=== PATIENT | female | born 1935 | race Caucasian/White ===

== ENCOUNTER 2022-10-03 21:12 | Inpatient (IN) | payer OTHER, BC ==
[~2022-10-03] VITALS: Ht 154.9 cm; Wt 60.3 kg
[2022-10-03 21:15] VITALS: BP 151/100
--- NOTE | 2022-10-03 21:15 | NUR ---
PT NATALIE BLS. TAKEN TO BED 6
--- NOTE | 2022-10-03 21:27 | NUR ---
Dr. Smith examining patient.
[2022-10-03] MEDS ORDERED: NACL 0.9% 1,000 ML IV ONE (21:35)
[2022-10-03 21:54] LABS: BASOPHILS % (AUTO) 0.3 % (0.0-2.0); EOSINOPHILS % (AUTO) 0.1 % (0.0-4.0); HEMATOCRIT 38.9 % (36-48); HEMOGLOBIN 13.5 g/dL (12.0-16.0); LYMPHOCYTES # (AUTO) 0.7 K/uL (2.5-16.5); MEAN CORPUSCULAR HEMOGLOBIN 32 pg (27-31); MEAN CORPUSCULAR HGB CONC 35 g/dL (33-37); MEAN CORPUSCULAR VOLUME 93.4 fL (80-94); MONOCYTES # (AUTO) 0.8 K/uL (0.8-1.0); MONOCYTES % (AUTO) 9.3 % (1.7-9.3); NEUTROPHILS # (AUTO) 7.1 K/uL (1.8-7.7); NEUTROPHILS % (AUTO) 82.3 % (42.2-75.2); PLATELET COUNT (AUTO) 418 K/uL (140-450); RED BLOOD CELL COUNT(AUTO) 4.16 MIL/uL (4.20-5.40); RED CELL DISTRIBUTION WIDTH 14.5 % (11.6-13.7); WHITE BLOOD COUNT (AUTO) 8.6 K/uL (4.8-10.8)
--- NOTE | 2022-10-03 22:05 | NUR ---
PT TAKEN TO CT
[2022-10-03 22:23] LABS: ASPARTATE AMINOTRANSFERASE 97 U/L (15-37); CARBON DIOXIDE 23.7 mmol/L (21-32); CHLORIDE 101 mmol/L (98-107); CREATININE 1.6 mg/dL (0.6-1.3); GLUCOSE 98 mg/dL (74-106); POTASSIUM 3.7 mmol/L (3.5-5.1); SODIUM SERUM 138 mmol/L (136-145); TOTAL BILIRUBIN 0.8 mg/dL (0.0-1.0); UREA NITROGEN, BLOOD 35 mg/dL (7-18)
--- NOTE | 2022-10-03 22:42 | NUR ---
SPOKE TO THOMAS PT'S SON THAT IS LISTED EMERGENCY CONTACT STATES PT HAS HISTORY OF FALLS AND ABOUT 2 REPORTS TO APS ABOUT HER LIVING SITUATION AND FALLS. STATES WAS D/C FROM [facility] ABOUT 2 MONTHS AGO AND WAS HOSPITALIZED D/T FALL. STATES SHE DOES NOT WANT TO LIVE ANYONE AND REFUSES TO STAY IN A [facility]IP APPLYING MACHINE TENDER CARE FACILITY. PT'S DAUGHTER STATES SHE ALSO LIKES TO DRINK ALCOHOL WHICH PLACES A BIG FACTOR IN HER FALLING. RHONDA DOVER MADE AWARE.
--- NOTE | 2022-10-03 22:49 | NUR ---
SONY DAUGHTER'S NUMBER [id number]
--- NOTE | 2022-10-03 22:58 | NUR ---
PT RETURN FROM CT
[2022-10-03] MEDS ORDERED: ASPIRIN 81 MG TAB.CHEW PO ONE (23:30)
[2022-10-03 23:37] LABS: APPEARANCE,URINE CLOUDY (CLEAR); BILIRUBIN,URINE NEGATIVE (NEGATIVE); BLOOD, URINE 2+ (NEGATIVE); COLOR,URINE YELLOW (YELLOW); LEUKOCYTE ESTERASE ,URINE 1+ (NEGATIVE); NITRITE, URINE NEGATIVE (NEGATIVE); PH,URINE 5.5 (5.0-9.0); UGLUCOSE NEGATIVE (NEGATIVE)
--- NOTE | 2022-10-03 23:38 | NUR ---
UA collected and sent to lab
[2022-10-03 23:53] LABS: RBC,URINE 0-5 /HPF (0-5)
[2022-10-04] MEDS ORDERED: DEXT 5% / NACL 0.9% 1,000 ML IV ONE (00:30)
--- NOTE | 2022-10-04 00:58 | NUR ---
REPORT TO APS MADE, SPOKE TO GERMANE. GAVE INTAKE NUMBER [id number] FORM SUBMITED TO HOUSE SUPERVISIOR TO BE MAILED TO [facility] OFFICE.
--- NOTE | 2022-10-04 01:42 | NUR ---
Patient will be admitted to care of . Admited to TELE. Will go to room 106B. Belongings list completed. Report to HÉCTOR ALVAREZ.
--- NOTE | 2022-10-04 02:00 | NUR ---
NURSE NOTES VSS. AFEB. TELE WITH SR. NO C/O PAIN OR DISCOMFORT.
[2022-10-04] MEDS ORDERED: LOSA100T2 PO (02:02)
[2022-10-04] MEDS ORDERED: SYN.05 PO (02:02)
[2022-10-04 02:55] VITALS: BP 172/75
--- NOTE | 2022-10-04 06:00 | NUR ---
NURSE NOTES VSS. AFEB. NO C/O PAIN OR DISCOMFORT. TELE MONITOR WITH SR. CATY ZHANG RN
--- NOTE | 2022-10-04 07:25 | NUR ---
RECEIVED REPORT FROM FACILITY EXAMINER FOR CONTINUITY OF CARE. INITIAL ASSESSMENT DONE. ALERT AND ORIENTED. RESP. EVEN AND UNLABORED. IV SITE INTACT. NOT IN ANY DISTRESS NOTED. CALL LIGHT KEPT WITHIN REACH. WILL CONTINUE TO MONITOR.
--- NOTE | 2022-10-04 07:28 | NUR ---
NURSE REPORT REPORT GIVEN TO DAYSSCFT NURSE CICI TO ASSUME CARE OF PATIENT. ALL QUESTIONS ANSWERED. CATY ZHANG RN
[2022-10-04] MEDS ORDERED: guaiFENesin DM 200/20 MG-10 ML 10 ML UDC PO PRN (07:55)
[2022-10-04] MEDS ORDERED: POTASSIUM CHLORIDE 10 MEQ TABER PO PRN (07:55)
[2022-10-04] MEDS ORDERED: ACETAMINOPHEN 325 MG TAB PO PRN (07:55)
[2022-10-04] MEDS ORDERED: HYDROcodone/APAP 7.5/325 MG 1 TAB PO PRN (07:55)
[2022-10-04] MEDS ORDERED: ZOLPIDEM 5 MG TAB PO PRN (07:55)
[2022-10-04] MEDS ORDERED: DOCUSATE SODIUM 100 MG GELCAP PO PRN (07:55)
[2022-10-04] MEDS ORDERED: ONDANSETRON 4 MG/2 ML VIAL IM/IVP PRN (07:55)
[2022-10-04 08:00] VITALS: BP 137/77
[2022-10-04 08:46] LABS: PROTHROMBIN TIME 10.1 secs (10.8-13.4)
[2022-10-04] MEDS: NACL 0.9% 1,000 ML IV SCH (08:50)
[2022-10-04 08:54] LABS: CHOL/HDL RATIO 1.7 (1-4.5); FREE T4 (FREE THYROXINE) 1.26 ng/dL (0.76-1.46); MAGNESIUM 2.3 mg/dL (1.8-2.4); PHOSPHORUS 3.9 mg/dL (2.5-4.9)
[2022-10-04] MEDS ORDERED: LOSARTAN 50 MG TAB PO SCH (09:00)
--- NOTE | 2022-10-04 09:02 | NUR ---
PATIENT HAS BEEN SCREENED AND CATEGORIZED MODERATE NUTRITION RISK. PATIENT WILL BE SEEN WITHIN 3-5 DAYS OF ADMISSION. 10/04/22-10/09/[address] BY ELVA V[address]
[2022-10-04] MEDS: PANTOPRAZOLE 40 MG TABEC PO SCH (09:34)
[2022-10-04] MEDS: LEVOTHYROXINE 0.05 MG TAB PO SCH (09:35)
--- NOTE | 2022-10-04 09:35 | NUR ---
SCHEDULED MEDICATIONS GIVEN. TOLERATED WELL.
--- NOTE | 2022-10-04 11:21 | NUR ---
Patient's Plan of Care was discussed and reviewed with CHARGE COORDINATOR: CICI
[2022-10-04 12:00] VITALS: BP 159/72
--- NOTE | 2022-10-04 13:50 | NUR ---
P.T. NOTES P.T. EVAL COMPLETED; REFER TO EVAL FOR DETAILS.
[2022-10-04 16:00] VITALS: BP 156/84
--- NOTE | 2022-10-04 19:10 | NUR ---
RECEIVED CALLED FROM THOMAS (SON) ALL QUESTIONS ANSWERED.
--- NOTE | 2022-10-04 19:15 | NUR ---
RECEIVED PATIENT FROM AM NURSE FOR CONTINUITY OF CARE. PT IS STABLE
[2022-10-04 20:00] VITALS: BP 150/56
[2022-10-04] MEDS: carvediloL 6.25 MG TAB PO SCH (21:03)
[2022-10-05] VITALS: BP 134/61
[2022-10-05] MEDS: NACL 0.9% 1,000 ML IV SCH ×2 (00:24→17:17)
--- NOTE | 2022-10-05 02:00 | NUR ---
PATIENT ASLEEP, NO DISTRESS NOTED
[2022-10-05 04:00] VITALS: BP 140/59
[2022-10-05] MEDS: LEVOTHYROXINE 0.05 MG TAB PO SCH (06:16)
[2022-10-05] MEDS: hydrALAZINE 20 MG/ML VIAL IVP PRN (06:46)
--- NOTE | 2022-10-05 06:47 | NUR ---
APRESOLINE 10 MG 0.5 ML IVP GIVEN FOR BP 170/68
[2022-10-05 07:12] LABS: ANION GAP 10.5 (8-16); CARBON DIOXIDE 25.5 mmol/L (21-32); CHLORIDE 100 mmol/L (98-107); CREATININE 1.2 mg/dL (0.6-1.3); GLUCOSE 100 mg/dL (74-106); SODIUM SERUM 133 mmol/L (136-145); UREA NITROGEN, BLOOD 29 mg/dL (7-18)
[2022-10-05 07:24] LABS: BASOPHILS % (AUTO) 0.4 % (0.0-2.0); EOSINOPHILS # (AUTO) 0.1 K/uL (0-0.4); EOSINOPHILS % (AUTO) 1.5 % (0.0-4.0); HEMATOCRIT 33.9 % (36-48); HEMOGLOBIN 11.4 g/dL (12.0-16.0); LYMPHOCYTES # (AUTO) 1.4 K/uL (2.5-16.5); LYMPHOCYTES % (AUTO) 21.3 % (20.5-51.1); MEAN CORPUSCULAR HEMOGLOBIN 32 pg (27-31); MEAN CORPUSCULAR HGB CONC 34 g/dL (33-37); MEAN CORPUSCULAR VOLUME 95.9 fL (80-94); MONOCYTES # (AUTO) 0.7 K/uL (0.8-1.0); MONOCYTES % (AUTO) 10.8 % (1.7-9.3); NEUTROPHILS # (AUTO) 4.5 K/uL (1.8-7.7); PLATELET COUNT (AUTO) 308 K/uL (140-450); RED BLOOD CELL COUNT(AUTO) 3.54 MIL/uL (4.20-5.40); RED CELL DISTRIBUTION WIDTH 14.6 % (11.6-13.7); WHITE BLOOD COUNT (AUTO) 6.8 K/uL (4.8-10.8)
--- NOTE | 2022-10-05 07:41 | NUR ---
Patient's Plan of Care was discussed and reviewed with PLANT AND MACHINERY VALUER:
[2022-10-05 08:00] VITALS: BP 140/60
[2022-10-05 09:06] LABS: T4 (THYROXINE) 7.1 ug/dL (4.5-12.0)
[2022-10-05] MEDS: carvediloL 6.25 MG TAB PO SCH ×2 (11:24→20:11)
[2022-10-05] MEDS: PANTOPRAZOLE 40 MG TABEC PO SCH (11:24)
[2022-10-05] MEDS: ECOTRIN 81 MG TABEC PO SCH (11:24)
--- NOTE | 2022-10-05 13:25 | NUR ---
DC PLANNING ASSESSMENT COMPLETE PLEASE REFER TO ASSESSMENT FOR ADDITIONAL DETAILS PT CURRENTLY HAS APS REPORT/INTAKE NUMBER [id number] . PHYSICAL THERAPIST RECOMMENDING SNF PLACEMENT. PT NOT IN AGREEMENT WITH SNF PLACEMENT. PT CONTINUES TO REPORT SHE WANTS TO RETURN HOME. DISCUSSED WITH PT THAT RETURNING HOME AT THIS TIME IS NOT A SAFE DISCHARGE HOWEVER, CONTINUED TO REPORT SHE WANTS TO RETURN HOME. SW ENDORSED TO CM, CM TO OUTREACH TO PTS CHILDREN TO DISCUSS DC PLANNING. Addendum: 10/06/22 at 0846 by Manisha VAZQUEZ Amended: Links added.
--- NOTE | 2022-10-05 14:39 | NUR ---
DC PLANNING AN 87 Y.O. FEMALE PATIENT ADMITTED FOR NSTEMI,MARIO WHO CAME TO ER FOR FALL.HX OF THYROIDISM,HTN AND ARTHRITIS.SHE AMBULATES WITH A WALKER.WITH ELEVATED TROPONIN LEVEL.CARDIO ON BOARD.ECHO RESULT PENDING.CT HEAD AND SPINE (-).XR OF PELVIS, KNEE ,HIP.FOREARMS (-) FOR ACUTE FRACTURES.SUSHIL CONSULTED FOR CREAT.1.6. REFUSING SNF PER [facility]. [facility] ALREADY CALLED 3X REGARDING PATIENT'S FALL. TALKED TO SON .SON REQUESTING A CALL FROM AN MD.FLOOR NURSE BISI TO RELAY MESSAGE TO ANY MD ROUNDING.CM TO FOLLOW. Addendum: 10/06/22 at 1512 by NGUYỄN FAJARDO CM DC PLANNING PATIENT REQUESTED TO GO BACK TO [facility] AND WAS ACCEPTED.PATIENT IS GOING TO [facility] ARRANGED TRANSPORT WITH [facility]SP[facility].TUBE CLOSING MACHINE OPERATOR TIME BETWEEN 6-7PM.AMAIRANI ERICKSON FLOOR NURSE TO INFORM SON. Addendum: 10/06/22 at 1642 by NGUYỄN FAJARDO CM LATE ENTRY SPOKE WITH SON,THOMAS AND UPDATED OF PATIENT'S TRANSFER TO [facility].PATIENT WAS ACCEPTED BY [facility] .
--- NOTE | 2022-10-05 16:40 | NUR ---
PHYSICAL THERAPY CO-SIGN The Physical Therapy Progress Notes documented by Curriculum Manager have been reviewed. Reviewed/Co-Signed by: Jessica Hernandez PT Documentation Done by:MANNY RODRIGUEZ CHIEF WARDEN Addendum: 10/05/22 at 1640 by Jessica Hernandez PT Amended: Links added.
[2022-10-05] MEDS: POTASSIUM CHLORIDE 10 MEQ TABER PO SCH ×2 (16:55→17:09)
--- NOTE | 2022-10-05 19:15 | NUR ---
ENDORSED PT TO OUTBOARD MOTOR INSPECTOR NURSE FOR CONTINUITY OF CARE. PT IS STABLE.
--- NOTE | 2022-10-05 19:20 | NUR ---
RECEIVED PT FROM AM NURSE FOR CONTINUITY OF CARE. PT IS STABLE
[2022-10-05 20:00] VITALS: BP 146/64
[2022-10-06 04:00] VITALS: BP 167/46
[2022-10-06] MEDS: hydrALAZINE 20 MG/ML VIAL IVP PRN (05:25)
[2022-10-06] MEDS: LEVOTHYROXINE 0.05 MG TAB PO SCH (06:16)
[2022-10-06 06:50] LABS: ANION GAP 11.8 (8-16); CARBON DIOXIDE 24.7 mmol/L (21-32); CHLORIDE 102 mmol/L (98-107); GLUCOSE 98 mg/dL (74-106); POTASSIUM 3.5 mmol/L (3.5-5.1); SODIUM SERUM 135 mmol/L (136-145); UREA NITROGEN, BLOOD 20 mg/dL (7-18)
[2022-10-06 07:56] LABS: BASOPHILS % (AUTO) 0.5 % (0.0-2.0); EOSINOPHILS # (AUTO) 0.1 K/uL (0-0.4); EOSINOPHILS % (AUTO) 1.4 % (0.0-4.0); HEMATOCRIT 33.2 % (36-48); HEMOGLOBIN 11.2 g/dL (12.0-16.0); LYMPHOCYTES # (AUTO) 1.2 K/uL (2.5-16.5); LYMPHOCYTES % (AUTO) 19.7 % (20.5-51.1); MEAN CORPUSCULAR HEMOGLOBIN 32 pg (27-31); MEAN CORPUSCULAR HGB CONC 34 g/dL (33-37); MEAN CORPUSCULAR VOLUME 95.4 fL (80-94); MONOCYTES # (AUTO) 0.6 K/uL (0.8-1.0); NEUTROPHILS # (AUTO) 4.2 K/uL (1.8-7.7); NEUTROPHILS % (AUTO) 68.4 % (42.2-75.2); PLATELET COUNT (AUTO) 309 K/uL (140-450); RED BLOOD CELL COUNT(AUTO) 3.48 MIL/uL (4.20-5.40); RED CELL DISTRIBUTION WIDTH 14.6 % (11.6-13.7); WHITE BLOOD COUNT (AUTO) 6.2 K/uL (4.8-10.8)
[2022-10-06 08:00] VITALS: BP 154/76
--- NOTE | 2022-10-06 08:10 | NUR ---
Patient notes her fall occurred because of right leg pain when getting up to go to the bathroom at night and she says she has a history of two stents in this extremity.
--- NOTE | 2022-10-06 08:48 | NUR ---
Daughter says she has called for 4 days and knows basic medical information explanation of fall, kidney injury and heart attack says she wants to speak to a MD about her mom because she is out of state, phone [phone], and wants specific information because she says her mother and nurses do not explain things well.
[2022-10-06] MEDS: PANTOPRAZOLE 40 MG TABEC PO SCH (09:30)
[2022-10-06] MEDS: ECOTRIN 81 MG TABEC PO SCH (09:30)
[2022-10-06] MEDS: carvediloL 6.25 MG TAB PO SCH (09:30)
--- NOTE | 2022-10-06 15:34 | NUR ---
Spoke to Leatha about patient report for hospitalization and transfer to room 15a at [facility] at 7 pm.
[2022-10-06 16:00] VITALS: BP 148/78
--- NOTE | 2022-10-06 18:02 | NUR ---
Discontinue left hand 22 gauge intravenous site with intact catheter tip. Removal of identification bracelet. Belongings and paperwork preparation for discharge.
--- NOTE | 2022-10-06 18:55 | NUR ---
Patient's son notification of patient's discharge via ambulance at this time.
== END 2022-10-06 18:50 | DRG 871 ==
LOC: MED 21:12 → MTU 10-04 00:32
PROVIDERS: ADMIT Family Medicine; ATTEND Family Medicine
DX: A41.9 Sepsis, unspecified organism (principal); G93.41 Metabolic encephalopathy; N17.0 Acute kidney failure with tubular necrosis; M62.82 Rhabdomyolysis; N39.0 Urinary tract infection, site not specified; I24.8 Other forms of acute ischemic heart disease; S09.8XXA Other specified injuries of head, initial encounter; E86.0 Dehydration; E03.9 Hypothyroidism, unspecified; Z20.822 Contact with and (suspected) exposure to COVID-19; I12.9 Hypertensive chronic kidney disease with stage 1 through stage 4 chronic kidney disease, or unspecified chronic kidney disease; N18.9 Chronic kidney disease, unspecified; M19.90 Unspecified osteoarthritis, unspecified site; E78.00 Pure hypercholesterolemia, unspecified; Z90.710 Acquired absence of both cervix and uterus; W18.39XA Other fall on same level, initial encounter; Y93.89 Activity, other specified; Y92.89 Other specified places as the place of occurrence of the external cause; Y99.8 Other external cause status
CPT/HCPCS: 36415; 70450; 72125; 72170; 73080; 73090; 73502; 73562; 80048; 80053; 81001; 82150; 82550; 82553; 83036; 83690; 83735; 83880; 84100; 84436; 84439; 84443; 84479; 84484; 85025; 85610; 85730; 87081; 87086; 96360; 97110; 97112; 97116; 97530; 99285; G0482; J0360; J0696; J7060; Q0092

== ENCOUNTER 2023-05-13 20:03 | Inpatient (IN) | payer OTHER, BC ==
[~2023-05-13] VITALS: Ht 157.5 cm; Wt 48.5 kg
[~2023-05-13 20:03] MED LIST: LOSA-272 PO; SYN.05 PO
[2023-05-13 20:24] VITALS: BP 198/93; PULSE 90; RESP 16; TEMP 98.2; O2SAT 97
[2023-05-13 20:36] VITALS: O2SAT 97
[2023-05-13 21:01] LABS: BASOPHILS % (AUTO) 0.2 % (0.0-2.0); EOSINOPHILS % (AUTO) 0.1 % (0.0-4.0); HEMATOCRIT 43.4 % (36-48); HEMOGLOBIN 14.7 g/dL (12.0-16.0); LYMPHOCYTES # (AUTO) 0.6 K/uL (2.5-16.5); LYMPHOCYTES % (AUTO) 5.6 % (20.5-51.1); MEAN CORPUSCULAR HEMOGLOBIN 32 pg (27-31); MEAN CORPUSCULAR HGB CONC 34 g/dL (33-37); MEAN CORPUSCULAR VOLUME 93.2 fL (80-94); MONOCYTES # (AUTO) 0.6 K/uL (0.8-1.0); MONOCYTES % (AUTO) 5.4 % (1.7-9.3); NEUTROPHILS # (AUTO) 9.3 K/uL (1.8-7.7); NEUTROPHILS % (AUTO) 88.7 % (42.2-75.2); PLATELET COUNT (AUTO) 349 K/uL (140-450); RED BLOOD CELL COUNT(AUTO) 4.66 MIL/uL (4.20-5.40); RED CELL DISTRIBUTION WIDTH 13.9 % (11.6-13.7); WHITE BLOOD COUNT (AUTO) 10.4 K/uL (4.8-10.8)
[2023-05-13 21:21] LABS: ALANINE AMINOTRANSFERASE 21 U/L (12-78); ALBUMIN 3.7 g/dL (3.4-5.0); ALKALINE PHOSPHATASE 98 U/L (50-136); ANION GAP 16.6 (8-16); ASPARTATE AMINOTRANSFERASE 51 U/L (15-37); CALCIUM 9.3 mg/dL (8.5-10.1); CARBON DIOXIDE 24.9 mmol/L (21-32); CHLORIDE 99 mmol/L (98-107); CREATINE KINASE, TOTAL 872 U/L (26-192); CREATININE 1.6 mg/dL (0.6-1.3); GLUCOSE 85 mg/dL (74-106); POTASSIUM 3.5 mmol/L (3.5-5.1); SODIUM SERUM 137 mmol/L (136-145); TOTAL BILIRUBIN 0.9 mg/dL (0.0-1.0); TOTAL PROTEIN, SERUM 8.4 g/dL (6.4-8.2); UREA NITROGEN, BLOOD 31 mg/dL (7-18)
[2023-05-13 21:37] LABS: LACTIC ACID 1.3 mmol/L (0.4-2.0)
[2023-05-13 21:45] LABS: CKMB RELATIVE INDEX 1.9 (0.0-2.5)
[2023-05-13] MEDS ORDERED: NACL 0.9% 500 ML IV ONE (21:45)
[2023-05-13] MEDS ORDERED: CLONIDINE HYDROCHLORIDE 0.1 MG TAB PO ONE (22:25)
[2023-05-13] MEDS ORDERED: NACL 0.9% 1,000 ML IV ONE (23:15)
[2023-05-13] MEDS ORDERED: ASPIRIN 325 MG TAB PO ONE (23:15)
[2023-05-13] MEDS ORDERED: MORPHINE SULFATE 4 MG/ML SYR IVP PRN (23:45)
[2023-05-13] MEDS ORDERED: ONDANSETRON 4 MG/2 ML VIAL IVP PRN (23:45)
[2023-05-13] MEDS ORDERED: DOCUSATE SODIUM 100 MG GELCAP PO PRN (23:45)
[2023-05-13] MEDS ORDERED: ACETAMINOPHEN 325 MG TAB PO PRN ×2 (23:45)
[2023-05-13] MEDS ORDERED: ZOLPIDEM 10 MG TAB PO PRN (23:45)
[2023-05-13] MEDS ORDERED: POTASSIUM CHLORIDE 10 MEQ TABER PO PRN (23:45)
[2023-05-13] MEDS ORDERED: MAG SULF 2000 MG/WATER PREMIX 50 ML IV PRN (23:45)
[2023-05-14] VITALS (8 sets, daily range): BP systolic 122–147; BP diastolic 50–60; PULSE 60–89; RESP 18; TEMP 97.9–98.5; O2SAT 95–98
[2023-05-14] MEDS: hydrALAZINE 20 MG/ML VIAL IVP SCH ×6 (00:50→20:00)
[2023-05-14] MEDS ORDERED: ASPIRIN 325 MG TAB ONE (01:10)
[2023-05-14] MEDS ORDERED: LOSA-272 PO (01:56)
[2023-05-14 08:10] LABS: BASOPHILS # (AUTO) 0.1 K/uL (0.00-0.22); BASOPHILS % (AUTO) 0.7 % (0.0-2.0); EOSINOPHILS # (AUTO) 0.1 K/uL (0-0.4); EOSINOPHILS % (AUTO) 0.7 % (0.0-4.0); HEMATOCRIT 36.6 % (36-48); HEMOGLOBIN 12.3 g/dL (12.0-16.0); LYMPHOCYTES # (AUTO) 1.3 K/uL (2.5-16.5); LYMPHOCYTES % (AUTO) 14.7 % (20.5-51.1); MEAN CORPUSCULAR HEMOGLOBIN 32 pg (27-31); MEAN CORPUSCULAR HGB CONC 34 g/dL (33-37); MEAN CORPUSCULAR VOLUME 94.3 fL (80-94); MONOCYTES # (AUTO) 0.7 K/uL (0.8-1.0); MONOCYTES % (AUTO) 8.1 % (1.7-9.3); NEUTROPHILS # (AUTO) 6.6 K/uL (1.8-7.7); NEUTROPHILS % (AUTO) 75.8 % (42.2-75.2); PLATELET COUNT (AUTO) 286 K/uL (140-450); RED BLOOD CELL COUNT(AUTO) 3.88 MIL/uL (4.20-5.40); RED CELL DISTRIBUTION WIDTH 14.1 % (11.6-13.7); WHITE BLOOD COUNT (AUTO) 8.8 K/uL (4.8-10.8)
[2023-05-14 09:09] LABS: ALANINE AMINOTRANSFERASE 20 U/L (12-78); ALBUMIN 2.8 g/dL (3.4-5.0); ALKALINE PHOSPHATASE 78 U/L (50-136); ANION GAP 16.2 (8-16); ASPARTATE AMINOTRANSFERASE 39 U/L (15-37); CALCIUM 8.1 mg/dL (8.5-10.1); CARBON DIOXIDE 23.3 mmol/L (21-32); CHLORIDE 103 mmol/L (98-107); CREATININE 1.6 mg/dL (0.6-1.3); GLUCOSE 65 mg/dL (74-106); MAGNESIUM 1.9 mg/dL (1.8-2.4); POTASSIUM 3.5 mmol/L (3.5-5.1); SODIUM SERUM 139 mmol/L (136-145); TOTAL BILIRUBIN 0.7 mg/dL (0.0-1.0); TOTAL PROTEIN, SERUM 6.7 g/dL (6.4-8.2); UREA NITROGEN, BLOOD 34 mg/dL (7-18)
[2023-05-14] MEDS: HYDROcodone/APAP 5/325 MG 1 TAB TAB PO PRN (10:33)
[2023-05-14] MEDS: amLODIPine 5 MG TAB PO SCH (12:37)
[2023-05-14] MEDS ORDERED: HEPARIN PER PHARMACY MC PRN (12:55)
[2023-05-14] MEDS: NACL 0.9% 1,000 ML IV SCH (12:58)
[2023-05-14] MEDS: hePARIN / DEXT 5% PREMIX 250 ML IV SCH ×2 (14:26→22:03)
[2023-05-14 20:54] LABS: INR 1.03 (0.8-1.2); PARTIAL THROMBOPLASTIN TIME 39.8 secs (22-35.6); PROTHROMBIN TIME 10.8 secs (10.8-13.4)
[2023-05-15] VITALS (8 sets, daily range): BP systolic 127–168; BP diastolic 52–60; PULSE 48–65; RESP 18–19; TEMP 97–98.9; O2SAT 95–98
[2023-05-15] MEDS: NACL 0.9% 1,000 ML IV SCH ×2 (02:44→15:22)
[2023-05-15] MEDS: hydrALAZINE 20 MG/ML VIAL IVP SCH ×6 (04:00→20:00)
[2023-05-15 04:18] LABS: ALANINE AMINOTRANSFERASE 16 U/L (12-78); ALBUMIN 2.8 g/dL (3.4-5.0); ALKALINE PHOSPHATASE 68 U/L (50-136); ANION GAP 11.2 (8-16); ASPARTATE AMINOTRANSFERASE 39 U/L (15-37); CALCIUM 7.6 mg/dL (8.5-10.1); CHLORIDE 101 mmol/L (98-107); CREATININE 1.5 mg/dL (0.6-1.3); GLUCOSE 90 mg/dL (74-106); POTASSIUM 3.2 mmol/L (3.5-5.1); SODIUM SERUM 133 mmol/L (136-145); TOTAL BILIRUBIN 0.4 mg/dL (0.0-1.0); TOTAL PROTEIN, SERUM 6.5 g/dL (6.4-8.2); UREA NITROGEN, BLOOD 34 mg/dL (7-18)
[2023-05-15 04:23] LABS: BASOPHILS % (AUTO) 0.7 % (0.0-2.0); EOSINOPHILS # (AUTO) 0.1 K/uL (0-0.4); EOSINOPHILS % (AUTO) 1.6 % (0.0-4.0); HEMATOCRIT 33.6 % (36-48); HEMOGLOBIN 11.2 g/dL (12.0-16.0); LYMPHOCYTES # (AUTO) 1.9 K/uL (2.5-16.5); LYMPHOCYTES % (AUTO) 27.3 % (20.5-51.1); MEAN CORPUSCULAR HEMOGLOBIN 32 pg (27-31); MEAN CORPUSCULAR HGB CONC 34 g/dL (33-37); MEAN CORPUSCULAR VOLUME 94.5 fL (80-94); MONOCYTES # (AUTO) 0.6 K/uL (0.8-1.0); MONOCYTES % (AUTO) 9.2 % (1.7-9.3); NEUTROPHILS # (AUTO) 4.2 K/uL (1.8-7.7); NEUTROPHILS % (AUTO) 61.2 % (42.2-75.2); PLATELET COUNT (AUTO) 281 K/uL (140-450); RED BLOOD CELL COUNT(AUTO) 3.55 MIL/uL (4.20-5.40); RED CELL DISTRIBUTION WIDTH 14.2 % (11.6-13.7); WHITE BLOOD COUNT (AUTO) 6.9 K/uL (4.8-10.8)
[2023-05-15] MEDS: LEVOTHYROXINE 0.05 MG TAB PO SCH (06:42)
[2023-05-15] MEDS: amLODIPine 5 MG TAB PO SCH ×2 (08:31→20:22)
[2023-05-15] MEDS ORDERED: METOPROLOL SUCCINATE 50 MG TABER PO SCH (09:00)
[2023-05-15] MEDS ORDERED: amLODIPine 5 MG TAB PO SCH (11:30)
[2023-05-15] MEDS: hePARIN / DEXT 5% PREMIX 250 ML IV SCH ×2 (11:34→22:30)
[2023-05-16] VITALS: BP 157/59; PULSE 56; PULSE 77; RESP 18; TEMP 97.8; O2SAT 95
[2023-05-16] MEDS: HYDROcodone/APAP 5/325 MG 1 TAB TAB PO PRN ×2 (00:46→06:23)
[2023-05-16 04:00] VITALS: BP 167/63; PULSE 61; PULSE 62; RESP 18; TEMP 97.4; O2SAT 97
[2023-05-16] MEDS: hydrALAZINE 20 MG/ML VIAL IVP SCH ×6 (04:10→20:00)
[2023-05-16] MEDS: NACL 0.9% 1,000 ML IV SCH ×2 (04:42→18:00)
[2023-05-16] MEDS: LEVOTHYROXINE 0.05 MG TAB PO SCH (05:58)
[2023-05-16 06:57] LABS: BASOPHILS % (AUTO) 0.3 % (0.0-2.0); EOSINOPHILS # (AUTO) 0.1 K/uL (0-0.4); EOSINOPHILS % (AUTO) 0.7 % (0.0-4.0); HEMOGLOBIN 12.2 g/dL (12.0-16.0); LYMPHOCYTES # (AUTO) 1.6 K/uL (2.5-16.5); LYMPHOCYTES % (AUTO) 19.3 % (20.5-51.1); MEAN CORPUSCULAR HEMOGLOBIN 31 pg (27-31); MEAN CORPUSCULAR HGB CONC 33 g/dL (33-37); MEAN CORPUSCULAR VOLUME 94.3 fL (80-94); MONOCYTES # (AUTO) 0.7 K/uL (0.8-1.0); MONOCYTES % (AUTO) 7.9 % (1.7-9.3); NEUTROPHILS % (AUTO) 71.8 % (42.2-75.2); PLATELET COUNT (AUTO) 327 K/uL (140-450); RED BLOOD CELL COUNT(AUTO) 3.93 MIL/uL (4.20-5.40); RED CELL DISTRIBUTION WIDTH 14.2 % (11.6-13.7); WHITE BLOOD COUNT (AUTO) 8.3 K/uL (4.8-10.8)
[2023-05-16 07:33] LABS: ALANINE AMINOTRANSFERASE 16 U/L (12-78); ALBUMIN 2.9 g/dL (3.4-5.0); ALKALINE PHOSPHATASE 71 U/L (50-136); ANION GAP 12.5 (8-16); ASPARTATE AMINOTRANSFERASE 32 U/L (15-37); CALCIUM 8.8 mg/dL (8.5-10.1); CARBON DIOXIDE 23.6 mmol/L (21-32); CHLORIDE 105 mmol/L (98-107); CREATININE 1.2 mg/dL (0.6-1.3); GLUCOSE 101 mg/dL (74-106); POTASSIUM 4.1 mmol/L (3.5-5.1); SODIUM SERUM 137 mmol/L (136-145); TOTAL BILIRUBIN 0.4 mg/dL (0.0-1.0); UREA NITROGEN, BLOOD 23 mg/dL (7-18)
[2023-05-16 08:00] VITALS: BP 147/57; PULSE 70; PULSE 71; RESP 18; TEMP 98.7; O2SAT 95
[2023-05-16] MEDS: amLODIPine 5 MG TAB PO SCH ×2 (08:47→20:35)
[2023-05-16] MEDS ORDERED: amLODIPine 5 MG TAB PO SCH (09:00)
[2023-05-16 12:00] VITALS: BP 149/71; PULSE 77; PULSE 82; RESP 18; TEMP 98.8; O2SAT 98
[2023-05-16] MEDS: hePARIN / DEXT 5% PREMIX 250 ML IV SCH ×2 (14:58→22:41)
[2023-05-16 16:00] VITALS: BP 162/62; PULSE 76; PULSE 80; RESP 18; TEMP 98.8; O2SAT 95
[2023-05-16 20:00] VITALS: BP 130/61; PULSE 78; PULSE 83; RESP 18; TEMP 97.6; O2SAT 95
[2023-05-17] VITALS: BP 164/62; PULSE 81; PULSE 86; RESP 18; TEMP 97.2; O2SAT 95
[2023-05-17] MEDS: hydrALAZINE 20 MG/ML VIAL IVP SCH ×4 (00:08→12:00)
[2023-05-17] MEDS: HYDRAGUARD CREAM TP SCH ×2 (01:18→13:26)
[2023-05-17] MEDS: NACL 0.9% 1,000 ML IV SCH (01:58)
[2023-05-17 03:14] LABS: BASOPHILS % (AUTO) 0.5 % (0.0-2.0); EOSINOPHILS # (AUTO) 0.1 K/uL (0-0.4); HEMATOCRIT 35.7 % (36-48); HEMOGLOBIN 11.8 g/dL (12.0-16.0); LYMPHOCYTES # (AUTO) 1.5 K/uL (2.5-16.5); LYMPHOCYTES % (AUTO) 21.2 % (20.5-51.1); MEAN CORPUSCULAR HEMOGLOBIN 31 pg (27-31); MEAN CORPUSCULAR HGB CONC 33 g/dL (33-37); MEAN CORPUSCULAR VOLUME 93.3 fL (80-94); MONOCYTES # (AUTO) 0.6 K/uL (0.8-1.0); MONOCYTES % (AUTO) 8.4 % (1.7-9.3); NEUTROPHILS # (AUTO) 4.9 K/uL (1.8-7.7); NEUTROPHILS % (AUTO) 68.9 % (42.2-75.2); PLATELET COUNT (AUTO) 297 K/uL (140-450); RED BLOOD CELL COUNT(AUTO) 3.82 MIL/uL (4.20-5.40); RED CELL DISTRIBUTION WIDTH 14.2 % (11.6-13.7); WHITE BLOOD COUNT (AUTO) 7.2 K/uL (4.8-10.8)
[2023-05-17 03:29] LABS: ALANINE AMINOTRANSFERASE 19 U/L (12-78); ALBUMIN 2.7 g/dL (3.4-5.0); ALKALINE PHOSPHATASE 71 U/L (50-136); ANION GAP 10.9 (8-16); ASPARTATE AMINOTRANSFERASE 27 U/L (15-37); CALCIUM 8.4 mg/dL (8.5-10.1); CARBON DIOXIDE 25.7 mmol/L (21-32); CHLORIDE 102 mmol/L (98-107); GLUCOSE 102 mg/dL (74-106); POTASSIUM 3.6 mmol/L (3.5-5.1); SODIUM SERUM 135 mmol/L (136-145); TOTAL BILIRUBIN 0.4 mg/dL (0.0-1.0); TOTAL PROTEIN, SERUM 6.6 g/dL (6.4-8.2); UREA NITROGEN, BLOOD 15 mg/dL (7-18)
[2023-05-17] MEDS: hePARIN / DEXT 5% PREMIX 250 ML IV SCH ×2 (03:50→07:05)
[2023-05-17 04:00] VITALS: BP 157/67; PULSE 88; PULSE 90; RESP 18; TEMP 97.6; O2SAT 96
[2023-05-17] MEDS: LEVOTHYROXINE 0.05 MG TAB PO SCH (05:38)
[2023-05-17] MEDS: HYDROcodone/APAP 5/325 MG 1 TAB TAB PO PRN (06:53)
[2023-05-17 08:00] VITALS: BP 157/65; PULSE 70; PULSE 84; RESP 19; TEMP 98.9; O2SAT 96
[2023-05-17] MEDS ORDERED: AMLO5TAB PO (09:04)
[2023-05-17] MEDS ORDERED: ASPI-1822 PO (09:04)
[2023-05-17] MEDS: amLODIPine 5 MG TAB PO SCH (09:33)
[2023-05-17 10:00] VITALS: BP 157/65; PULSE 84; RESP 19; TEMP 98.9
[2023-05-17 10:33] VITALS: BP 125/64; PULSE 75
== END 2023-05-17 16:10 | DRG 557 ==
LOC: MED 20:03 → MMU 23:33 → MTU 05-14 00:37
PROVIDERS: ADMIT Family Medicine; ATTEND Family Medicine
DX: M62.82 Rhabdomyolysis (principal); I21.4 Non-ST elevation (NSTEMI) myocardial infarction; N17.9 Acute kidney failure, unspecified; K57.90 Diverticulosis of intestine, part unspecified, without perforation or abscess without bleeding; M47.816 Spondylosis without myelopathy or radiculopathy, lumbar region; E03.9 Hypothyroidism, unspecified; R74.01 Elevation of levels of liver transaminase levels; I12.9 Hypertensive chronic kidney disease with stage 1 through stage 4 chronic kidney disease, or unspecified chronic kidney disease; N18.9 Chronic kidney disease, unspecified
CPT/HCPCS: 36415; 70450; 71250; 72125; 80053; 82550; 82553; 83605; 83735; 83880; 84484; 85025; 85610; 85730; 87040; 87081; 93005; 93880; 96360; 97112; 97116; 99285; J0360; J1644; J2270; Q0092

== ENCOUNTER 2023-09-22 20:54 | Inpatient (IN) | payer OTHER, BC ==
[~2023-09-22] VITALS: Ht 165.1 cm; Wt 58.1 kg
[~2023-09-22 20:54] MED LIST changes: +AMLO5TAB PO; +ASPI-1822 PO; -LOSA-272 PO
[2023-09-22 21:00] VITALS: BP 193/110; PULSE 102; RESP 17; TEMP 97.6; O2SAT 98
[2023-09-22 21:15] VITALS: O2SAT 99
[2023-09-23 00:19] VITALS: O2SAT 99
[2023-09-23] MEDS: NACL 0.9% 1,000 ML IV ONE (01:01)
[2023-09-23 01:04] LABS: BASOPHILS # (AUTO) 0.1 K/uL (0.00-0.22); BASOPHILS % (AUTO) 0.6 % (0.0-2.0); EOSINOPHILS % (AUTO) 0.5 % (0.0-4.0); HEMATOCRIT 38.1 % (36-48); LYMPHOCYTES # (AUTO) 1.5 K/uL (2.5-16.5); LYMPHOCYTES % (AUTO) 16.1 % (20.5-51.1); MEAN CORPUSCULAR HEMOGLOBIN 31 pg (27-31); MEAN CORPUSCULAR HGB CONC 34 g/dL (33-37); MEAN CORPUSCULAR VOLUME 92.1 fL (80-94); MONOCYTES # (AUTO) 0.6 K/uL (0.8-1.0); MONOCYTES % (AUTO) 6.3 % (1.7-9.3); NEUTROPHILS # (AUTO) 7.2 K/uL (1.8-7.7); NEUTROPHILS % (AUTO) 76.5 % (42.2-75.2); PLATELET COUNT (AUTO) 482 K/uL (140-450); RED BLOOD CELL COUNT(AUTO) 4.14 MIL/uL (4.20-5.40); RED CELL DISTRIBUTION WIDTH 14.5 % (11.6-13.7); WHITE BLOOD COUNT (AUTO) 9.4 K/uL (4.8-10.8)
[2023-09-23 01:11] LABS: APPEARANCE,URINE CLEAR (CLEAR); BILIRUBIN,URINE NEGATIVE (NEGATIVE); BLOOD, URINE 1+ (NEGATIVE); COLOR,URINE YELLOW (YELLOW); LEUKOCYTE ESTERASE ,URINE 2+ (NEGATIVE); NITRITE, URINE POSITIVE (NEGATIVE); PROTEIN,URINE 1+ (NEGATIVE); UGLUCOSE NEGATIVE (NEGATIVE); UROBILINOGEN,URINE 0.2 EU/dL (0.2 - 1)
[2023-09-23 01:18] LABS: BACTERIA,URINE >30 (MANY) /HPF (None Seen); WBC,URINE 16-25 (MOD) /HPF (0-5)
[2023-09-23 01:19] LABS: MUCUS,URINE 1+ /LPF (None Seen); SQUAMOUS EPITHELIAL CELL,UR 0-3 (FEW) /LPF (0-3 (FEW))
[2023-09-23 01:24] LABS: ANION GAP 15.4 (8-16); CALCIUM 9.2 mg/dL (8.5-10.1); CARBON DIOXIDE 24.4 mmol/L (21-32); CHLORIDE 101 mmol/L (98-107); CREATININE 1.2 mg/dL (0.6-1.3); GLUCOSE 81 mg/dL (74-106); POTASSIUM 3.8 mmol/L (3.5-5.1); SODIUM SERUM 137 mmol/L (136-145); UREA NITROGEN, BLOOD 17 mg/dL (7-18)
[2023-09-23 01:28] LABS: ALBUMIN 3.4 g/dL (3.4-5.0); BILIRUBIN,DIRECT 0.2 mg/dL (0.0-0.3); TOTAL BILIRUBIN 0.7 mg/dL (0.0-1.0); TOTAL PROTEIN, SERUM 7.6 g/dL (6.4-8.2)
[2023-09-23 01:31] LABS: LACTIC ACID 0.9 mmol/L (0.4-2.0)
[2023-09-23] MEDS ORDERED: KETOROLAC 30 MG/ML VIAL IVP PRN (03:50)
[2023-09-23] MEDS ORDERED: LORazepam 2 MG/ML VIAL IVP PRN (03:50)
[2023-09-23] MEDS ORDERED: ONDANSETRON 4 MG/2 ML VIAL IVP PRN (03:50)
[2023-09-23] MEDS ORDERED: cefTRIAXone 1,000 MG VIAL ONE (04:51)
[2023-09-23] MEDS: NACL 0.9% 1,000 ML IV SCH (04:58)
[2023-09-23] MEDS ORDERED: MORPHINE SULFATE 2 MG/ML SYR IVP PRN (05:35)
[2023-09-23] MEDS ORDERED: LOSA-272 PO (06:31)
[2023-09-23] MEDS: LEVOTHYROXINE 0.05 MG TAB PO SCH (06:39)
[2023-09-23 07:28] VITALS: O2SAT 98
[2023-09-23 07:47] LABS: ALANINE AMINOTRANSFERASE 11 U/L (12-78); ALBUMIN 2.9 g/dL (3.4-5.0); ALKALINE PHOSPHATASE 77 U/L (50-136); ANION GAP 14.4 (8-16); ASPARTATE AMINOTRANSFERASE 36 U/L (15-37); CALCIUM 8.6 mg/dL (8.5-10.1); CARBON DIOXIDE 23.4 mmol/L (21-32); CHLORIDE 104 mmol/L (98-107); CREATININE 1.1 mg/dL (0.6-1.3); GLUCOSE 65 mg/dL (74-106); POTASSIUM 3.8 mmol/L (3.5-5.1); SODIUM SERUM 138 mmol/L (136-145); TOTAL BILIRUBIN 0.6 mg/dL (0.0-1.0); TOTAL PROTEIN, SERUM 6.7 g/dL (6.4-8.2); UREA NITROGEN, BLOOD 17 mg/dL (7-18)
[2023-09-23 09:00] VITALS: RESP 17; O2SAT 98
[2023-09-23] MEDS ORDERED: ENOXAPARIN 40 MG/0.4 ML SYR SUBQ SCH (09:00)
[2023-09-23] MEDS: amLODIPine 5 MG TAB PO SCH (09:14)
[2023-09-23] MEDS: ENOXAPARIN 30 MG/0.3 ML SYR SUBQ SCH (09:15)
[2023-09-23] MEDS: CELECOXIB 100 MG CAP PO SCH (14:32)
[2023-09-23 16:00] VITALS: BP 149/66; RESP 17; TEMP 98.1; O2SAT 98
[2023-09-23] MEDS: LOSARTAN 50 MG TAB PO SCH (16:44)
[2023-09-23] MEDS ORDERED: LIDOCAINE MPF 1% 10 MG/ML VIAL INJ SCH (16:55)
[2023-09-23] MEDS: LIDOCAINE MPF 1% 5 ML ONE (16:56)
[2023-09-23 20:00] VITALS: BP 121/61; PULSE 72; RESP 18; TEMP 96.9; O2SAT 98
[2023-09-24 04:00] VITALS: BP 114/92; PULSE 68; RESP 18; TEMP 97.8; O2SAT 95
[2023-09-24 08:00] VITALS: PULSE 63; RESP 18; O2SAT 98
[2023-09-24 16:00] VITALS: BP 106/63; PULSE 66; RESP 18; TEMP 97.4; O2SAT 97
[2023-09-24 20:00] VITALS: BP 143/59; PULSE 76; RESP 18; TEMP 97.4; O2SAT 96
[2023-09-25 04:00] VITALS: BP 150/60; PULSE 64; RESP 18; TEMP 97; O2SAT 95
[2023-09-25] MEDS: ACETAMINOPHEN 325 MG TAB PO PRN (04:33)
[2023-09-25 08:00] VITALS: BP 152/76; PULSE 58; RESP 18; TEMP 96.7; O2SAT 97
[2023-09-25] MEDS: LEVOFLOXACIN 250 MG/D5 PREMIX 50 ML IV SCH (13:20)
[2023-09-25] MEDS: LEVOFLOXACIN 250 MG/D5 PREMIX 50 ML IV ONE (13:20)
[2023-09-25 16:00] VITALS: BP 139/60; PULSE 65; RESP 18; TEMP 97.7; O2SAT 97
[2023-09-25] MEDS: APIXABAN 2.5 MG TAB ONE ×2 (17:27)
[2023-09-25 20:00] VITALS: PULSE 77; RESP 18; O2SAT 98
[2023-09-26 04:00] VITALS: BP 147/62; PULSE 68; RESP 18; TEMP 97.5; O2SAT 98
[2023-09-26 08:00] VITALS: PULSE 62; RESP 18; O2SAT 98
[2023-09-26 12:00] VITALS: BP 147/62; PULSE 62; RESP 18; TEMP 98.3; O2SAT 97
[2023-09-26] MEDS: LEVOFLOXACIN 250 MG/D5 PREMIX 50 ML IV ONE (12:24)
[2023-09-26] MEDS ORDERED: LEVO250T89 PO (16:43)
[2023-09-26] MEDS ORDERED: CELE100C99 PO (16:43)
[2023-09-26 20:00] VITALS: BP 130/100; PULSE 84; RESP 18; TEMP 98.1; O2SAT 97; O2SAT 98
[2023-09-27 06:52] LABS: BASOPHILS % (AUTO) 0.4 % (0.0-2.0); EOSINOPHILS # (AUTO) 0.2 K/uL (0-0.4); HEMATOCRIT 36.3 % (36-48); HEMOGLOBIN 12.1 g/dL (12.0-16.0); LYMPHOCYTES # (AUTO) 1.3 K/uL (2.5-16.5); LYMPHOCYTES % (AUTO) 26.3 % (20.5-51.1); MEAN CORPUSCULAR HEMOGLOBIN 31 pg (27-31); MEAN CORPUSCULAR HGB CONC 33 g/dL (33-37); MEAN CORPUSCULAR VOLUME 92.8 fL (80-94); MONOCYTES # (AUTO) 0.7 K/uL (0.8-1.0); MONOCYTES % (AUTO) 13.2 % (1.7-9.3); NEUTROPHILS # (AUTO) 2.8 K/uL (1.8-7.7); NEUTROPHILS % (AUTO) 57.1 % (42.2-75.2); PLATELET COUNT (AUTO) 365 K/uL (140-450); RED BLOOD CELL COUNT(AUTO) 3.91 MIL/uL (4.20-5.40); RED CELL DISTRIBUTION WIDTH 14.5 % (11.6-13.7)
[2023-09-27 08:00] VITALS: BP 175/67; PULSE 73; RESP 18; TEMP 98.5; O2SAT 97
[2023-09-27] MEDS: hydrALAZINE 20 MG/ML VIAL IVP PRN (09:20)
[2023-09-27 16:00] VITALS: BP 130/57; PULSE 72; RESP 19; TEMP 98.1; O2SAT 98
[2023-09-27 20:00] VITALS: BP 169/73; PULSE 73; PULSE 91; RESP 18; TEMP 97.8; O2SAT 97; O2SAT 98
[2023-09-28 00:15] VITALS: BP 169/73; PULSE 81; RESP 18
[2023-09-28 00:25] VITALS: BP 159/66; PULSE 73; RESP 18
[2023-09-28 01:30] VITALS: BP 157/67; PULSE 77; RESP 18
[2023-09-28 04:00] VITALS: BP 160/67; PULSE 75; RESP 18; TEMP 97.1; O2SAT 97
[2023-09-28 08:00] VITALS: BP 139/58; PULSE 84; RESP 18; TEMP 97.1; O2SAT 97
== END 2023-09-28 11:15 | disposition home or self-care (01) | DRG 565 ==
LOC: MED 20:54 → MTU 09-23 03:54 → MMU 09-23 03:54 → MTU 09-23 06:29
PROVIDERS: ADMIT Internal Medicine; ATTEND Internal Medicine
PROC: 0S9C3ZZ Drainage of Right Knee Joint, Percutaneous Approach (ICD-10-PCS; principal; 2023-09-24)
DX: M25.461 Effusion, right knee (principal); N39.0 Urinary tract infection, site not specified; M17.11 Unilateral primary osteoarthritis, right knee; E03.9 Hypothyroidism, unspecified; Z79.899 Other long term (current) drug therapy
CPT/HCPCS: 36415; 71045; 73562; 80048; 80053; 80076; 81001; 83605; 85025; 87040; 87086; 87186; 93005; 96361; 96374; 97110; 97116; 97163-GP; 97530; 99285; J0360; J0696; J1650; J1956; J2001; J7060; Q0092